=== PATIENT | male | born 1950 | race Caucasian/White ===

== ENCOUNTER → 2016-11-29 | Outpatient (CLI) | payer MEDICARE ==
--- NOTE | 2016-11-29 11:59 | PN ---
DATE OF SERVICE: 11/29/2016 A 66-year-old gentleman who has been followed in the Sleep Center for treatment of obstructive sleep apnea-hypopnea syndrome. Patient is using his CPAP equipment every night, feel well except he has sinus problem. [place] Sleepiness Scale is 10. I checked his CPAP unit. Usage is 30 out of 30 nights for more than 4 hours. No REM. CPAP pressure 9.4, humidifier at 3, leak 18 L per minute. AHI reading 0.7. Patient decreased weight from 233 pounds down to 228 pounds. MEDICATIONS: Enalapril. During physical exam, patient in no distress. BP 166/92, HR 54, RR 16. Height 5, 6. Weight 228. BMI 36.9. Temperature 98.4. Oxygen saturation at room air 96%. HEENT: ROXANNA JOSEPH. LUNGS: Clear. HEART: S1, S2, regular. ABDOMEN: Slightly obese, soft, nontender. EXTREMITIES: No edema. IMPRESSION: 1. Obstructive sleep apnea-hypopnea syndrome. Patient demonstrated 100% compliance with treatment and benefiting from treatment. 2. Obesity, patient lost weight of 5 pounds. 3. Sinusitis. 4. Hyperlipidemia. 5. Hypertension. 6. History of depression. 7. Status post left hip replacement. PLAN: 1. I reviewed results of sleep studies and decreased pressure down to 7 cm of water. 2. Continue to use equipment every night for the whole night. 3. Sleep hygiene with regular time in bed for at least 8 hours. 4. No driving if feeling any sleepiness. 5. Patient should return back if he develops any snoring, because pressure has been decreased. Again goal of the decreasing pressure is to possibly improve symptoms related to sinuses. I also discussed with the patient possibility to adjust humidity because this also could related to the sinus issue. Thank you very much for allowing me to participate in the management of your patient. Sincerely, Mario Garcia MD, PhD, FAASM. Diplomat of [place] Board of Sleep Medicine, Sleep Medicine Board by [place] [employer] of [employer] Specialities [place] Board of Internal Medicine Reducing Salon Attendant of [facility] [place]
== END | disposition home or self-care (01) ==

== ENCOUNTER → 2017-07-04 | Outpatient (CLI) | payer MEDICARE ==
--- NOTE | 2017-07-04 21:19 | PN ---
DATE OF SERVICE: 07/04/2017 This patient is a 66-year-old gentleman who has been followed in the sleep center for treatment of obstructive sleep apnea/hypopnea syndrome. The last time I saw patient was about 6 months ago. At that time, pressure in the machine was decreased to 7 cm of water. The patient continues to successfully use his machine. Recently Claritin was added to his treatment, and with Claritin his breathing through the nose has improved and he sleeps better. [place] Sleepiness Scale today is 5. I checked his CPAP unit. CPAP pressure is 7 cm of water. Usage is 30 out of 30 nights for more than 4 hours. Apnea/hypopnea index is only 1.3. Humidity is at the level of 4. Patient does not use RAMP. MEDICATIONS: 1. Claritin. 2. Enalapril. During physical exam, patient is in no distress. BP 148/75, HR 56, RR 16. Height 5 feet 6 inches. Weight 229. BMI 36.9. Temperature 98.1. Oxygen saturation at room air 97%. HEENT: PERRLA. EOMI. Evaluation of oropharynx shows low position of soft palate. NECK: Supple. No JVD. Thyroid is not palpable. LUNGS: Clear to percussion and to auscultation. Good air exchange. No wheezing or rhonchi. HEART: S1, S2. Systolic murmur. ABDOMEN: Obese. EXTREMITIES: No clubbing or cyanosis. ASSOCIATE ACCOUNT EXECUTIVE: Awake, alert and oriented x3. Cranial nerves 2 to 7 intact. There is no fasciculation or atrophy noted. No focal deficits observed. IMPRESSION: 1. Obstructive sleep apnea-hypopnea syndrome. Patient is using CPAP equipment every night for more than 4 hours. Normal respiration according to reading from CPAP. Benefitting from treatment. 2. Obesity. Patient has about the same weight as during previous visit. 3. History of sinusitis. 4. Hyperlipidemia. 5. Hypertension. 6. History of depression. 7. Status post left hip replacement. PLAN: 1. Continue treatment with CPAP every night for the whole night. 2. Losing weight. 3. Sleep hygiene with regular time in bed for at least 8 hours. 4. No driving if feeling any sleepiness. 5. Follow-up visit in one year. Thank you very much for allowing me to participate in the management of your patient. Sincerely, Mario Garcia MD, PhD, FAASM Diplomat of [employer] Board of Sleep Medicine Sleep Medicine Board by [employer] Board of Medical Specialities Greek Board of Internal Medicine Director Volunteer Services of [facility] [place]
== END ==
LOC: SLEEP 10:26
PROVIDERS: ATTEND Internal Medicine
DX: G47.33 Obstructive sleep apnea (adult) (pediatric) (principal); E66.9 Obesity, unspecified; E78.5 Hyperlipidemia, unspecified; I10 Essential (primary) hypertension; F32.9 Major depressive disorder, single episode, unspecified; J32.9 Chronic sinusitis, unspecified; Z96.642 Presence of left artificial hip joint; Z79.899 Other long term (current) drug therapy

== ENCOUNTER → 2018-07-10 | Outpatient (CLI) | payer MEDICARE ==
--- NOTE | 2018-07-10 16:55 | SFUN ---
SLEEP CENTER FOLLOW UP NOTE DATE OF SERVICE: 07/10/2018 67-year-old gentleman who has been followed in Sleep Center for treatment of obstructive sleep apnea-hypopnea syndrome. Patient continued to use his CPAP equipment every night for the whole night without any significant problems getting his supplies well. No snoring with the machine. [place] Sleepiness Scale today is 7. I checked his CPAP unit. Usage is 100% of the time for more than 4 hours. Average usage is 7.4 hours. CPAP pressure is 7 cm of water. Leak is only 6 L/minute. Apnea- hypopnea index is 1.4, which is perfect. MEDICATIONS: Lisinopril. PHYSICAL EXAM: GENERAL Patient in no distress. VITAL SIGNS BP 160/80, HR 56, RR 16, height 5 foot 6, weight 225, BMI 36.3, temperature 97.8, oxygen saturation on room air 94%. HEENT PERRLA, EOMI, evaluation of oropharynx showed low position of soft palate. NECK Supple, no JVD. Thyroid is not palpable. LUNGS Clear to percussion and to auscultation. Good air exchange. No wheezing or rhonchi. HEART S1, S2. Regular. Slight systolic murmur. ABDOMEN Soft and nontender. Bowel sounds are present. No organomegaly appreciated. EXTREMITIES No clubbing or cyanosis. SCRAP SHEAR OPERATOR Awake, alert, and oriented X3. Cranial nerves 2 to 7 intact. There is no fasciculation or atrophy. noted. No focal deficits observed. IMPRESSION: 1. Obstructive sleep apnea-hypopnea syndrome. Patient demonstrated 100% compliance with treatment benefitting from treatment. 2. Obesity. 3. Hypertension. 4. History of sinusitis. 5. Hyperlipidemia. 6. History of depression. 7. Status post left hip total replacement. PLAN: 1. Continue treatment with CPAP every night for the whole night. 2. Watching and losing weight. 3. Sleep hygiene with regular time in bed for at least 8 hours. 4. No driving if feeling sleepiness. 5. Prescription for all necessary CPAP supplies including mask, tube, filters. Thank you very much for allowing me to participate in management of your patient. Follow up visit in 1 year or earlier if patient has any problems. Sincerely, Mario Garcia MD, PhD, FAASM Diplomat of [employer]ol[employer] Board of Medical Specialties Congolese Board of Internal Medicine Forklift Truck Operator of [facility] [place] WINKLER / IJN: [id number] /
== END | disposition home or self-care (01) ==
LOC: SLEEP 14:47
PROVIDERS: ATTEND Internal Medicine
DX: G47.33 Obstructive sleep apnea (adult) (pediatric) (principal); I10 Essential (primary) hypertension; E78.5 Hyperlipidemia, unspecified; F32.9 Major depressive disorder, single episode, unspecified; J32.9 Chronic sinusitis, unspecified; E66.9 Obesity, unspecified; Z68.36 Body mass index [BMI] 36.0-36.9, adult; Z96.642 Presence of left artificial hip joint; Z99.89 Dependence on other enabling machines and devices; Z79.899 Other long term (current) drug therapy

== ENCOUNTER → 2019-08-06 | Outpatient (CLI) | payer MEDICARE ==
--- NOTE | 2019-08-06 10:57 | SFUN ---
SLEEP CENTER FOLLOW UP NOTE DATE OF SERVICE: 08/06/2019 This 68-year-old gentleman has been followed in the sleep center for treatment of obstructive sleep apnea-hypopnea syndrome. Patient continued to use CPAP equipment every night for the whole night without any problems related to mask fitting, pressure or humidification. [place] Sleepiness Scale today is 5. I checked CPAP unit. CPAP pressure is 7 cm of water. Usage is every night for more than 4 hours with average usage 8.2 hours. Leak is 7 L/minute, which is absolutely normal range. Apnea-hypopnea index only 0.8, which is absolutely normal. MEDICATIONS: Lisinopril, fish oil and vitamins. PHYSICAL EXAMINATION: During physical exam, patient in no distress. VITAL SIGNS: BP 155/84, HR 54, RR 16, height 5 feet 6 inches, weight 224, body mass index 36.1, temperature 97.6, oxygen saturation at room air 97%. HEENT: PERRLA, EOMI. Oropharynx low position of soft palate. Mallampati 4. NECK: Supple, no JVD. Thyroid is not palpable. LUNGS: Clear to percussion and to auscultation. Good air exchange. No wheezing or rhonchi. HEART: S1, S2 regular. No murmurs, gallops, or rubs. ABDOMEN: Slightly obese. EXTREMITIES: No clubbing or cyanosis. PLUMBING CONTRACTOR: Awake, alert, and oriented X3. Cranial nerves 2 to 7 intact. There is no fasciculation or atrophy. noted. No focal deficits observed. IMPRESSION: 1. Obstructive sleep apnea-hypopnea syndrome. The patient demonstrated 100% compliance with treatment benefitting from treatment. 2. Hypertension. 3. Obesity. 4. History of sinusitis. 5. Hyperlipidemia. 6. History of depression. 7. Status post left hip total replacement. PLAN: 1. Patient will continue to use CPAP equipment every night for the whole night. 2. Watching and losing weight. 3. Sleep hygiene with regular time in bed for at least 7-1/2 hours. 4. No driving if feeling any sleepiness. 5. I will maintain all necessary prescriptions for CPAP supplies including mask, tube, filters. Thank you very much for allowing me to participate in management of your patient. Sincerely, Mario Garcia MD, PhD, FAASM Diplomat of [employer] Board of Medical Specialties Iraqi Board of Internal Medicine Access Services Assistant of [facility] [place] PETERSON / HIEN: [id number] /
== END | disposition home or self-care (01) ==
LOC: SLEEP 10:13
PROVIDERS: ATTEND Internal Medicine
DX: G47.33 Obstructive sleep apnea (adult) (pediatric) (principal); I10 Essential (primary) hypertension; E66.9 Obesity, unspecified; E78.5 Hyperlipidemia, unspecified; Z68.36 Body mass index [BMI] 36.0-36.9, adult; Z99.89 Dependence on other enabling machines and devices; Z79.899 Other long term (current) drug therapy; Z96.642 Presence of left artificial hip joint; Z86.59 Personal history of other mental and behavioral disorders; Z87.39 Personal history of other diseases of the musculoskeletal system and connective tissue

== ENCOUNTER → 2020-07-07 | Outpatient (CLI) | payer MEDICARE ==
--- NOTE | 2020-07-07 20:47 | SFUN ---
SLEEP CENTER FOLLOW UP NOTE DATE OF SERVICE: 07/07/2020 This patient is a 69-year-old gentleman who has been followed in Sleep Center for treatment of obstructive sleep apnea-hypopnea syndrome. The patient continues to use his CPAP equipment every night for the whole night. No snoring with the machine. [place] Sleepiness Scale today is 9. The patient lost about 30 pounds of his weight. I checked his CPAP unit. CPAP pressure is 7 cm of water. Usage is 30/30 nights for more than 4 hours. Average usage 8.1 hours. Leak is 28 L/minute. Apnea-hypopnea index 1.0, which is perfect. MEDICATIONS: Losartan, hydrochlorothiazide. PHYSICAL EXAMINATION: GENERAL: A pleasant patient in no distress. VITAL SIGNS: BP 156/72, HR in the range of 48, RR 15, height 5 feet 6-1/2 inches, weight 207, body mass index 32.9, temperature 98.2, oxygen saturation at room air 99%. HEENT: PERRLA, EOMI. Evaluation of oropharynx showed tongue protrudes midline. Extremely low position of soft palate. Mallampati IV. NECK: Supple. No JVD. Thyroid is not palpable. LUNGS: Clear to percussion and to auscultation. Good air exchange. No wheezing or rhonchi. HEART: S1, S2 with some irregularities, bradycardia. ABDOMEN: Soft and nontender. Bowel sounds are present. No organomegaly. EXTREMITIES: No clubbing or cyanosis. DRILLER MULTIPLE SPINDLE: Awake, alert, and oriented X3. Cranial nerves 2 to 7 intact. There is no fasciculation or atrophy. noted. No focal deficits observed. IMPRESSION: 1. Obstructive sleep apnea-hypopnea syndrome. The patient demonstrated 100% compliance with treatment, benefitting from treatment. 2. Bradycardia during physical exam. Some irregularities of heart beats. 3. Hypertension. 4. Mild obesity. Patient lost about 17 pounds since previous visit. 5. History of sinusitis. 6. History of depression. 7. Hyperlipidemia. 8. Status post left hip total replacement. PLAN: 1. Patient will continue to use PAP equipment every night for the whole night. 2. Sleep hygiene with regular time in bed for at least 7-1/2 to 8 hours. 3. Precautions related to driving. No driving if feeling sleepiness. 4. I will maintain all necessary prescription for PAP supplies including mask, tube, filters. 5. Watching weight. 6. No driving if feeling sleepiness. 7. Follow-up visit in 6 months or earlier if patient has any problems. Thank you very much for allowing me to participate in the management of your patient. Sincerely, Mario Garcia MD, PhD, FAASM Diplomat of [employer] Board of Medical Specialties Indonesian Board of Internal Medicine Tile Setter of [facility] [place] MMODL / IJN: [id number] /
== END | disposition home or self-care (01) ==
LOC: SLEEP 10:43
PROVIDERS: ATTEND Internal Medicine
DX: G47.33 Obstructive sleep apnea (adult) (pediatric) (principal); I10 Essential (primary) hypertension; E66.9 Obesity, unspecified; E78.5 Hyperlipidemia, unspecified; R00.1 Bradycardia, unspecified; Z99.89 Dependence on other enabling machines and devices; Z86.59 Personal history of other mental and behavioral disorders; Z87.09 Personal history of other diseases of the respiratory system

== ENCOUNTER → 2021-06-22 | Outpatient (CLI) | payer MEDICARE ==
--- NOTE | 2021-06-22 23:17 | SFUN ---
SLEEP CENTER FOLLOW UP NOTE DATE OF SERVICE: 06/22/2021 70-year-old gentleman has been followed in Sleep Center for treatment of obstructive sleep apnea-hypopnea syndrome. Patient continued to use his CPAP equipment every night for the whole night. No snoring with the machine. [place] Sleepiness Scale today is 9. The patient increased his weight 11 pounds since previous visit. I checked CPAP unit. Pressure is 7 cm of water. Usage is 100% of nights for more than 4 hours, average 8.2 hours per night. Leak is 23 L/minute, which is borderline. Apnea- hypopnea index is 1.2 which is totally normal range. CURRENT MEDICATIONS: Losartan 100 mg once a day, hydrochlorothiazide 12.5 mg once a day, ibuprofen 800 mg as needed. PHYSICAL EXAMINATION: GENERAL: Patient in no distress. BP 138/71, HR 58, RR 15, height 5 feet 6-1/2 inches, weight 218 pounds, body mass index 34.6, temperature 97.4, oxygen saturation at room air 95%. HEENT: PERRLA, EOMI, evaluation of oropharynx extremely low position of soft palate, Mallampati 4. NECK: Supple, no JVD. Thyroid is not palpable. LUNGS: Clear to percussion and to auscultation. Good air exchange. No wheezing or rhonchi. HEART: S1, S2 regular. No murmurs, gallops, or rubs. ABDOMEN: Soft and nontender. Bowel sounds are present. No organomegaly appreciated. EXTREMITIES: No clubbing or cyanosis. ARC AND GAS WELDER: Awake, alert, and oriented X3. Cranial nerves 2 to 7 intact. There is no fasciculation or atrophy. noted. No focal deficits observed. IMPRESSION: 1. Obstructive sleep apnea-hypopnea syndrome patient demonstrated 100% compliance with treatment benefitting from treatment. 2. Hypertension. 3. Mild obesity patient increased his weight 11 pounds since previous visit. 4. History of sinusitis. 5. History of depression. 6. Hyperlipidemia. 7. Status post left hip total replacement. PLAN: 1. Patient will continue to use PAP equipment every night for the whole night. 2. Sleep hygiene with regular time in bed for at least 7-1/2 to 8 hours. 3. Precautions related to driving. No driving if feeling sleepiness. 4. I will maintain all necessary prescription for PAP supplies including mask, tube, filters. 5. Watching weight. 6. Follow-up visit in 6 months or earlier if patient has any problems. Thank you very much for allowing me to participate in management of your patient. Sincerely, Mario Garcia MD, PhD, FAASM Diplomat of [place] Board of Medical Specialties Sleep Medicine Board of Niuean Board of Internal Medicine Machine Tool Builder of [facility] [place] MMODL / ROBN: [id number] /
== END ==
LOC: SLEEP 11:11
PROVIDERS: ATTEND Internal Medicine
DX: G47.33 Obstructive sleep apnea (adult) (pediatric) (principal); I10 Essential (primary) hypertension; E66.9 Obesity, unspecified; E78.5 Hyperlipidemia, unspecified; F32.9 Major depressive disorder, single episode, unspecified; Z87.09 Personal history of other diseases of the respiratory system; Z96.642 Presence of left artificial hip joint; Z68.34 Body mass index [BMI] 34.0-34.9, adult; Z99.89 Dependence on other enabling machines and devices; Z79.899 Other long term (current) drug therapy

== ENCOUNTER → 2021-12-28 | Outpatient (CLI) | payer MEDICARE ==
--- NOTE | 2021-12-28 20:30 | SFUN ---
SLEEP CENTER FOLLOW UP NOTE DATE OF SERVICE: 12/28/2021 This 71-year-old gentleman has been followed in Sleep Center for treatment of obstructive sleep apnea-hypopnea syndrome. The patient continues to use his CPAP equipment every night for the whole night. According to him, he cannot sleep now without CPAP. He likes his machine. He getting his supplies on time. [place] Sleepiness Scale today is 7. I checked his CPAP unit. Pressure is 7 cm of water. Usage is 30/30 nights for more than 4 hours, average 8.2 hours per night. Leak is 18 L/minute, which is borderline. Apnea-hypopnea index is 1.5, which is normal. MEDICATIONS: 1. Losartan/hydrochlorothiazide 100/12.5 mg once a day. 2. Ibuprofen 800 mg as needed. PHYSICAL EXAMINATION: GENERAL: Pleasant patient in no distress. VITAL SIGNS: BP 160/87, HR 53. Patient did not take his blood pressure medication yet. He usually takes it after breakfast and he did not have breakfast today. Weight 225.6 pounds. His weight increased by around 7 pounds. Temperature 97.5, oxygen saturation at room air 99%. Height 5 feet 6-1/2 inches. HEENT: PERRLA, EOMI, evaluation of oropharynx showed tongue protrudes midline. Extremely low position of soft palate; Mallampati IV. NECK: Supple, no JVD. Thyroid is not palpable. LUNGS: Clear to percussion and to auscultation. Good air exchange. No wheezing or rhonchi. HEART: S1, S2 regular. No murmurs, gallops, or rubs. ABDOMEN: Soft and nontender. Bowel sounds are present. No organomegaly appreciated. EXTREMITIES: No clubbing or cyanosis. ASBESTOS COVERER: Awake, alert, and oriented X3. Cranial nerves 2 to 7 intact. There is no fasciculation or atrophy. noted. No focal deficits observed. IMPRESSION: 1. Obstructive sleep apnea-hypopnea syndrome. Patient demonstrated great compliance with treatment, benefitting from treatment. Normal respiration on CPAP. 2. Hypertension. 3. Obesity. 4. History of sinusitis. 5. History of depression. 6. Status post left hip total replacement. 7. Hyperlipidemia. PLAN: 1. Patient should empty all water left in his humidifier chamber in the morning and let the humidifier chamber dry. At present he keeps leftover water inside the humidifier. 2. Patient will continue to use PAP equipment every night for the whole night. 3. Sleep hygiene with regular time in bed for at least 7-1/2 to 8 hours. 4. Precautions related to driving. No driving if feeling sleepiness. 5. I will maintain all necessary prescription for PAP supplies including mask, tube, filters. 6. Watching weight. 7. Follow-up visit in 6 months or earlier if patient has any problems. Thank you very much for allowing me to participate in the management of your patient. Sincerely, Mario Garcia MD, PhD, FAASM Diplomat of [place] Board of Medical Specialties Sleep Medicine Board of Micronesian Board of Internal Medicine Engineering Aid of [facility] [place] MMMELODY / ROBN: [id number] /
== END ==
LOC: SLEEP 10:03
PROVIDERS: ATTEND Internal Medicine
DX: G47.33 Obstructive sleep apnea (adult) (pediatric) (principal); I10 Essential (primary) hypertension; E66.9 Obesity, unspecified; F32.A Depression, unspecified; E78.5 Hyperlipidemia, unspecified; Z96.642 Presence of left artificial hip joint; Z99.89 Dependence on other enabling machines and devices; Z87.09 Personal history of other diseases of the respiratory system

== ENCOUNTER → 2022-06-28 | Outpatient (CLI) | payer MEDICARE ==
--- NOTE | 2022-06-28 11:27 | P.PN ---
Subjective DATE: 06/28/2022 FOLLOW UP VISIT. Patient with obstructive sleep apnea hypopnea syndrome return to sleep center for follow-up visit. Information from previous visit have been reviewed. Patient is using PAP equipment every night for the whole night, getting PAP supplies in time. The patient does have significant problems humidification. She tried to adjust temperature and humidifier to prevent dryness in his mouth, but still has dryness in the mouth and sometimes it is aware too much water in the tube. [place] sleepiness scale is 7. I checked PAP unit. Level of humidity at 3, temperature in the tube 60. PAP unit pressure 7 cm H2O. Usage is 100 % for more then 4 hours, average 7.6 hours per night. Leak is 14 l/m, which is in acceptable range. Apnea Hypopnea Index is 1.0, which is normal. MEDICATIONS:1. Losartanhydrochlorothiazide 100/12.5 mg once a day 2. Ibuprofen 800 mg as needed During physical exam: GENERAL: A pleasant patient without any distress. VITAL SIGNS: BP 162/83, HR 64, RR 16 , weight 223.6, temperature 97.1, oxygen saturation at room air 98 % . HEENT: PERRLA, EOMI.low position of soft palate, Mallapati 4 . NECK: Supple. No JVD. LUNGS: Clear to percussion and to auscultation. Good air exchange. No wheezing or rhonchi. HEART: S1, S2 regular. ABDOMEN: Soft and nontender. Slightly obese EXTREMITIES: No clubbing or cyanosis. DIETITIAN HELPER: Awake, alert, and oriented x3. No focal deficit. I adjusted temperature in the tube up to 80 to prevent condensation. I discussed with patient and family adjustments of humidity and temperature in the CPAP unit and tube. Impressions: 1. Obstructive sleep apnea-hypopnea syndrome. Patient demonstrated great compliance with treatment, benefiting from treatment. Patient has dryness in the mouth. 2. Hypertension. 3. Obesity. 4. History of depression. 5. History of sinusitis. 6. Hyperlipidemia. 7. Status post left hip total replacement. Plan: 1. Continue using PAP equipment every night for the whole night. 2. Additional prescription for chinstrap. 3. PAP unit should stay lower then position of the head. 4. Advised patient to remove all remaining water from humidifier canister daily and make it dry after each usage. Refill canister with fresh distilled water before each usage. 5. Sleep hygiene with regular time in bed for at least 8 hours. 6. Precautions related to driving. No driving if feel any sleepiness. 7. I will maintain prescription for PAP supplies including mask, tube, filters. 8. Follow up visit in 6 months or earlier if patient has any problems. 9. Watching weight. Thank you very much for allowing me to participate in the management of your patient. Mario Garcia MD, PhD, FAASM. Diplomat of [place] Board of Sleep Medicine, Sleep Medicine Board by [place] Board of Internal Medicine Auto Striper of [facility] [place]
== END ==
LOC: SLEEP 09:48
PROVIDERS: ATTEND Internal Medicine
DX: G47.33 Obstructive sleep apnea (adult) (pediatric) (principal); I10 Essential (primary) hypertension; E66.9 Obesity, unspecified; F32.A Depression, unspecified; E78.5 Hyperlipidemia, unspecified; Z96.642 Presence of left artificial hip joint; Z99.89 Dependence on other enabling machines and devices; Z79.899 Other long term (current) drug therapy; Z87.09 Personal history of other diseases of the respiratory system
CPT/HCPCS: 99212

== ENCOUNTER → 2024-02-27 | Outpatient (CLI) | payer MEDICARE ==
[2024-02-27 10:42] VITALS: BP 146/85; PULSE 58; RESP 16; TEMP 98.2
--- NOTE | 2024-02-27 10:55 | P.PN ---
Subjective DATE: 02/27/2024 FOLLOW UP VISIT. Patient with obstructive sleep apnea hypopnea syndrome return to sleep center for follow-up visit. Information from previous visit have been reviewed. Patient is using PAP equipment every night for the whole night, getting PAP supplies in time. The patient does not have significant problems with the mask, PAP unit. Sometimes patient feels that his nose possibly dry and plugged up during the night. [place] sleepiness scale is 4, which is normal. I checked information from PAP unit. PAP unit pressure 4-6, average 6 cm H2O. Usage is 100% for more then 4 hours, average 7.6 hours per night. Leak is 17 l/m, which is in acceptable range. Apnea Hypopnea Index is 0.5, which is normal. MEDICATIONS:1. Rosuvastatin 5 mg once a day 2. Losartanhydrochlorothiazide 100-12.5 mg once a day During physical exam: GENERAL: A pleasant patient without any distress. VITAL SIGNS: Please see below, weight 212 pounds. HEENT: PERRLA, EOMI.low position of soft palate, Mallapati 4 . NECK: Supple. No JVD. LUNGS: Clear to percussion and to auscultation. Good air exchange. No wheezing or rhonchi. HEART: S1, S2 regular. ABDOMEN: Soft and nontender. Slightly obese EXTREMITIES: No clubbing or cyanosis. PUMPER GAGER: Awake, alert, and oriented x3. No focal deficit. I teach patient how to adjust level of humidity and temperature in the tube. Level of humidity was increased to 4, temperature the tube was increased to 80 degree. Impressions: 1. Obstructive sleep apnea-hypopnea syndrome. Patient demonstrated great compliance with treatment, benefiting from treatment. 2. Obesity, BMI 33.7, patient increased weight on 13 pounds comparing with the previous visit. 3. Hypertension. 4. Hyperlipidemia. 5. History of diabetes mellitus. 6. History of depression. 7. History of sinusitis. 8. Status post left hip replacement. Plan: 1. Continue using PAP equipment every night for the whole night. 2. To change air filter at least 1-2 times per month. 3. PAP unit should stay lower then position of the head. 4. Advised patient to remove all remaining water from humidifier canister daily and make it dry after each usage. Refill canister with fresh distilled water before each usage. 5. Sleep hygiene with regular time in bed for at least 8 hours. 6. Precautions related to driving. No driving if feel any sleepiness. 7. I will maintain prescription for PAP supplies including mask, tube, filters. 8. Watching and losing weight. 9. Follow up visit in 6 months or earlier if patient has any problems. Thank you very much for allowing me to participate in the management of your patient. Mario Garcia MD, PhD, FAASM. Diplomat of [place] Board of Sleep Medicine, Sleep Medicine Board by [employer] Board of Internal Medicine Hand Surgeon of [facility] [place] Objective - Vital Signs Vital signs: Vital Signs Temp 98.2 F 02/27/24 10:35 Pulse 58 L 02/27/24 10:35 Resp 16 02/27/24 10:35 BP 146/85 02/27/24 10:35 Pulse Ox 98 02/27/24 10:35 FiO2 Intake & Output 02/26/24 02/27/24 02/27/24 18:59 06:59 18:59 Weight 96.162 kg
== END | disposition home or self-care (01) ==
LOC: 3 N SLEEP 10:23
PROVIDERS: ATTEND Internal Medicine
DX: G47.33 Obstructive sleep apnea (adult) (pediatric) (principal); E66.9 Obesity, unspecified; I10 Essential (primary) hypertension; E78.5 Hyperlipidemia, unspecified; E11.9 Type 2 diabetes mellitus without complications; F32.A Depression, unspecified; J32.9 Chronic sinusitis, unspecified; Z96.642 Presence of left artificial hip joint; Z68.33 Body mass index [BMI] 33.0-33.9, adult; Z99.89 Dependence on other enabling machines and devices
CPT/HCPCS: 99212

== ENCOUNTER → 2024-10-14 | Outpatient (CLI) | payer MEDICARE ==
[2024-10-14 10:46] VITALS: BP 166/80; PULSE 64; RESP 16; TEMP 97.7
--- NOTE | 2024-10-14 11:23 | P.PROGSL ---
Subjective DATE: 10/14/2024 FOLLOW UP VISIT. Patient with obstructive sleep apnea hypopnea syndrome return to sleep center for follow-up visit. Information from previous visit have been reviewed. Patient is using PAP equipment every night for the whole night, getting PAP supplies in time. The patient does not have significant problems with the mask, PAP unit and humidification. [place] sleepiness scale is 8, which is in normal range. I checked information from PAP unit. PAP unit pressure 4-6, average 6 cm H2O. Usage is 100% for more then 4 hours, average 7.3 hours per night. Leak is 10 l/m, which is in acceptable range. Apnea Hypopnea Index is 1.1, which is normal. MEDICATIONS have been reviewed, please see below. During physical exam: GENERAL: A pleasant patient without any distress. VITAL SIGNS: Please see below, weight is 231 lbs. HEENT: PERRLA, EOMI.low position of soft palate, Mall[place]ati 4 . NECK: Supple. No JVD. LUNGS: Clear to percussion and to auscultation. Good air exchange. No wheezing or rhonchi. HEART: S1, S2 regular. ABDOMEN: Soft and nontender. Slightly obese EXTREMITIES: No clubbing or cyanosis. 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 No focal deficit. Impressions: 1. Obstructive sleep apnea-hypopnea syndrome. Patient demonstrated great compliance with treatment, benefiting from treatment. 2. Obesity, BMI 36.7, patient increased weight on 19 pounds comparing with previous visit. 3. Hypertension. 4. Hyperlipidemia. 5. PreDM. 6. History of depression. 7. History of sinusitis. 8. Status post left hip replacement. Plan: 1. Continue using PAP equipment every night for the whole night. 2. Sleep hygiene with regular time in bed for at least 7.5-8 hours 3. PAP unit should stay lower then position of the head. 4. Advised patient to remove all remaining water from humidifier canister daily and make it dry after each usage. Refill canister with fresh distilled water before each usage. 5. Watching weight. 6. Precautions related to driving. No driving if feel any sleepiness. 7. I will maintain prescription for PAP supplies including mask, tube, filters. 8. Follow up visit in 8 months or earlier if patient has any problems. Thank you very much for allowing me to participate in the management of your patient. Mario Garcia MD, PhD, FAASM. Diplomat of [employer] [employer], Sleep Medicine Board by [place] [facility] [place] Objective - Vital Signs Vital Signs: Vital Signs Temp 97.7 F 10/14/24 10:45 Pulse 64 10/14/24 10:45 Resp 16 10/14/24 10:45 BP 166/80 10/14/24 10:45 Pulse Ox 98 10/14/24 10:45 FiO2 Intake & Output 10/13/24 10/14/24 10/14/24 18:59 06:59 18:59 Weight 104.78 kg Home Medications: Home Medications Medication Instructions Recorded Confirmed Type Losartan/Hydrochlorothiazide 12.5 cap PO DAILY 02/27/24 10/14/24 History [Losartan-Hctz 100-12.5 mg Tab] Rosuvastatin Calcium 5 mg PO DAILY 02/27/24 10/14/24 History Meloxicam [Mobic] 15 mg PO DAILY 10/14/24 10/14/24 History
== END ==
LOC: 3 N SLEEP 10:34
PROVIDERS: ATTEND Internal Medicine
DX: G47.33 Obstructive sleep apnea (adult) (pediatric) (principal); E66.9 Obesity, unspecified; I10 Essential (primary) hypertension; E78.5 Hyperlipidemia, unspecified; R73.03 Prediabetes; Z99.89 Dependence on other enabling machines and devices; Z87.09 Personal history of other diseases of the respiratory system; Z86.59 Personal history of other mental and behavioral disorders; Z79.899 Other long term (current) drug therapy; Z68.36 Body mass index [BMI] 36.0-36.9, adult; Z96.642 Presence of left artificial hip joint
CPT/HCPCS: 99212